=== PATIENT | female | born 1960 | race Caucasian/White ===

== ENCOUNTER → 2016-10-20 | Outpatient (CLI) | payer BC ==
[~2016-10-20] VITALS: Ht 172.7 cm; Wt 86.2 kg
[~2016-10-20] MED LIST: BENT10CA PO; CHLO50TA PO; LEVO175T2 PO; LIDOCAINE 2% INJ 100 MG/5 ML SDV (FOR ANES.) As Ordered ONE; LORA10CA PO; LOSA100T36 PO; META0.52 PO; MULT1TAB18 PO; NS 1,000 ML IV ONE; PROPOFOL 200 MG/20 ML VIAL As Ordered ONE; VENL75TA2 PO; [UNRECOGNIZED DRUG - CODE] PO
--- NOTE | 2016-10-20 13:04 | ROOR ---
Patient Name: Dian Cano Procedure Date: 10/20/2016 12:45 PM Date of : 1960 Age: 56 Room: [facility] Gender: Female Note Status: Finalized Procedure: Upper Endoscopy + Biopsies Indications: Heartburn, Endoscopy to assess diarrhea in patient suspected of having celiac disease Providers: Raffaele Elmore MD Referring MD: Skyla CORDOVA MD Requesting Provider: Medicines: Monitored Anesthesia Care Complications: No immediate complications. Procedure: Pre-Anesthesia Assessment: - The heart rate, respiratory rate, oxygen saturations, blood pressure, adequacy of pulmonary ventilation, and response to care were monitored throughout the procedure. The Endoscope was introduced through the mouth, and advanced to the second part of duodenum. The upper GI endoscopy was accomplished without difficulty. The patient tolerated the procedure well. Findings: The Z-line was irregular and was found 35 cm from the incisors. Multiple biopsies were obtained with cold forceps for evaluation to rule out Barcenas's Esophagus randomly at the gastroesophageal junction. A small hiatal hernia was present. No other significant abnormalities were identified in a careful examination of the stomach. The exam of the duodenum was otherwise normal. Biopsies for histology were taken with a cold forceps in the first portion of the duodenum for evaluation of celiac disease. The exam was otherwise without abnormality. Impression: - Z-line irregular, 35 cm from the incisors. - Small hiatal hernia. - The examination was otherwise normal. - Multiple biopsies were obtained at the gastroesophageal junction. - Biopsies were taken with a cold forceps for evaluation of celiac disease. - The examination was otherwise normal. Recommendation: - Patient has a contact number available for emergencies. The signs and symptoms of potential delayed complications were discussed with the patient. Return to normal activities tomorrow. Written discharge instructions were provided to the patient. - High fiber diet. - Discharge patient to home. - Continue present medications. - Await pathology results. - Telephone GI clinic for pathology results in 1 week. - Follow an antireflux regimen. - Check Portal Online for Path Results.([email or web address] - The findings and recommendations were discussed with the patient's family. Raffaele Elmore MD Raffaele Elmore MD 10/20/2016 1:03:58 PM This report has been signed electronically. Number of Addenda: 0 Note Initiated On: 10/20/2016 12:45 PM Estimated Blood Loss: Estimated blood loss: none.
--- NOTE | 2016-10-20 13:20 | ROOR ---
Patient Name: Dian Cano Procedure Date: 10/20/2016 12:46 PM Date of : 1960 Age: 56 Room: [facility] Gender: Female Note Status: Finalized Procedure: Total Colonoscopy to Cecum + Cold Snare Polypectomy Indications: Change in bowel habits Providers: Raffaele Elmore MD Referring MD: Skyla CORDOVA MD Requesting Provider: Medicines: Monitored Anesthesia Care Complications: No immediate complications. Procedure: Pre-Anesthesia Assessment: - The heart rate, respiratory rate, oxygen saturations, blood pressure, adequacy of pulmonary ventilation, and response to care were monitored throughout the procedure. The Colonoscope was introduced through the anus and advanced to the cecum, identified by appendiceal orifice and ileocecal valve. The colonoscopy was performed without difficulty. The patient tolerated the procedure well. The quality of the bowel preparation was excellent. Findings: The perianal and digital rectal examinations were normal. Non-bleeding internal hemorrhoids were found during retroflexion. The hemorrhoids were small and Grade I (internal hemorrhoids that do not prolapse). Two sessile polyps were found at 60 cm proximal to the anus. The polyps were small in size. These polyps were removed with a cold snare. Resection and retrieval were complete. The exam was otherwise without abnormality on direct and retroflexion views. Impression: - Non-bleeding internal hemorrhoids. - Two small polyps at 60 cm proximal to the anus, removed with a cold snare. Resected and retrieved. - The examination was otherwise normal on direct and retroflexion views. - The exam was otherwise normal to the cecum. Recommendation: - Patient has a contact number available for emergencies. The signs and symptoms of potential delayed complications were discussed with the patient. Return to normal activities tomorrow. Written discharge instructions were provided to the patient. - High fiber diet. - Discharge patient to home. - Continue present medications. - Await pathology results. - Telephone GI clinic for pathology results in 1 week. - Check Portal Online for Path Results.([email or web address] - Repeat colonoscopy in 5 years for surveillance based on pathology results. - Return to referring physician. - The findings and recommendations were discussed with the patient's family. Raffaele Elmore MD Raffaele Elmore MD 10/20/2016 1:19:59 PM This report has been signed electronically. Number of Addenda: 0 Note Initiated On: 10/20/2016 12:46 PM Estimated Blood Loss: Estimated blood loss: none.
[2016-10-20 13:55] VITALS: BP 153/84
== END | disposition home or self-care (01) ==
LOC: M OPP 11:18
PROVIDERS: ATTEND Internal Medicine Gastroenterology
DX: R19.4 Change in bowel habit (principal); D12.4 Benign neoplasm of descending colon; K64.0 First degree hemorrhoids; R19.7 Diarrhea, unspecified; Z86.010 Personal history of colon polyps; R12 Heartburn; K22.8 Other specified diseases of esophagus; K44.9 Diaphragmatic hernia without obstruction or gangrene; I10 Essential (primary) hypertension; E78.5 Hyperlipidemia, unspecified; E03.9 Hypothyroidism, unspecified; M51.9 Unspecified thoracic, thoracolumbar and lumbosacral intervertebral disc disorder; K58.9 Irritable bowel syndrome, unspecified; F17.210 Nicotine dependence, cigarettes, uncomplicated; Z79.899 Other long term (current) drug therapy; Z80.0 Family history of malignant neoplasm of digestive organs

== ENCOUNTER → 2017-04-07 | Outpatient (REF) ==
[~2017-04-07] MED LIST changes: -LIDOCAINE 2% INJ 100 MG/5 ML SDV (FOR ANES.) As Ordered ONE; -NS 1,000 ML IV ONE; -PROPOFOL 200 MG/20 ML VIAL As Ordered ONE
--- NOTE | 2017-04-08 09:36 | REPMRS ---
Patient History The patient states she had a clinical breast exam in 2016.No known family history of cancer. Digital Mammo Screening Bilat: April 07, 2017 - Exam #: [id number] Bilateral CC and MLO view(s) were taken. Technologist: Roz Rivera, Technologist Prior study comparison: April 25, 2016, bilateral digital mammo screening bilat performed at [facility]. April 24, 2015, bilateral digital mammo screening bilat performed at [facility]. FINDINGS: There are scattered fibroglandular densities. There has been no change in the appearance of the mammogram from the prior studies. There is a mild amount of residual fibroglandular tissue which is fairly symmetric. There is no interval development of dominant mass, architectural distortion, or clustered microcalcification suggestive of malignancy. ASSESSMENT: BI-RADS/ACR category 1 mammogram. Negative. Recommendation Routine screening mammogram in 1 year (for women over age 40). This mammogram was interpreted with the aid of an FDA-approved computer-aided dectection system. Electronically Signed By: Carlos Alberto Bond MD 04/08/17 0936
== END ==
LOC: M RAD 07:24 → EDSTATUS 07:30
PROVIDERS: ATTEND Nurse Practitioner Family
DX: Z12.31 Encounter for screening mammogram for malignant neoplasm of breast (principal)

== ENCOUNTER 2017-05-29 05:58 | Day surgery (SDC) | payer BC ==
[2017-05-29] MEDS ORDERED: LIDOCAINE 1% MDV 20ML VIAL SQ (06:15)
[2017-05-29] MEDS: LR 1,000 ML IV (06:37)
[2017-05-29] MEDS ORDERED: MIDAZOLAM INJ 2 MG/2 ML VIAL (J2250) As Ordered (07:50)
[2017-05-29] MEDS ORDERED: fentaNYL 100 MCG/2 ML INJECTION (J3010) As Ordered (07:50)
[2017-05-29] MEDS ORDERED: PHENYLephrine HCL 500 MCG/5 ML (100MCG/ML) SYRINGE (J2370) As Ordered (07:51)
[2017-05-29] MEDS ORDERED: METOCLOPRAMIDE INJ 10MG/2ML VIAL (J2765) As Ordered (07:51)
[2017-05-29] MEDS ORDERED: ePHEDrine INJ 50 MG/ML VIAL As Ordered (07:51)
[2017-05-29] MEDS ORDERED: CHLOROPROCAINE 2 % INJ PRES.FREE 20 ML VIAL (J2400) As Ordered (07:55)
[2017-05-29] MEDS ORDERED: LIDOCAINE 2% INJ 100 MG/5 ML SDV (FOR ANES.) As Ordered (07:56)
[2017-05-29] MEDS ORDERED: PROPOFOL 200 MG/20 ML VIAL As Ordered (07:56)
[2017-05-29] MEDS ORDERED: KETOROLAC 60 MG/2 ML VIAL (J1885) As Ordered (07:57)
[2017-05-29] MEDS ORDERED: ONDANSETRON 4MG/2ML VIAL (J2405) As Ordered (07:57)
[2017-05-29] MEDS ORDERED: LR 1,000 ML IV (08:45)
[2017-05-29] MEDS ORDERED: ONDANSETRON 4MG/2ML VIAL (J2405) IV (08:45)
[2017-05-29] MEDS ORDERED: HYDROmorphone HCL 1 MG/ML SYRINGE (J1170) IV (08:45)
[2017-05-29] MEDS ORDERED: fentaNYL 100 MCG/2 ML INJECTION (J3010) IV (08:45)
[2017-05-29] MEDS ORDERED: METOCLOPRAMIDE INJ 10MG/2ML VIAL (J2765) IV (08:45)
[2017-05-29] MEDS: PERCOCET 5MG/325MG TAB PO (09:13)
== END 2017-05-29 10:20 | disposition home or self-care (01) ==
LOC: M SDC 05:58
DX: K61.0 Anal abscess (principal); I10 Essential (primary) hypertension; E03.9 Hypothyroidism, unspecified; E78.00 Pure hypercholesterolemia, unspecified; K58.9 Irritable bowel syndrome, unspecified; K21.9 Gastro-esophageal reflux disease without esophagitis; R06.83 Snoring; F17.210 Nicotine dependence, cigarettes, uncomplicated; Z79.899 Other long term (current) drug therapy
CPT/HCPCS: 46050

== ENCOUNTER → 2017-07-09 | Outpatient (REF) | payer BC | LOC: M LAB REF 18:57 | DX: D48.5 Neoplasm of uncertain behavior of skin (principal) | CPT/HCPCS: 88305 ==

== ENCOUNTER → 2018-03-12 | Outpatient (REF) | LOC: M LAB 05:09 | DX: Z12.31 Encounter for screening mammogram for malignant neoplasm of breast (principal) ==

== ENCOUNTER → 2018-03-29 | Outpatient (REF) ==
[2018-03-29 18:32] LABS: HEMATOCRIT 42.4 % (36.0-47.0); HEMOGLOBIN 14.6 g/dl (12.0-15.5); MEAN CORPUSCULAR HEMOGLOBIN 32.2 pg (27.0-33.0); MEAN CORPUSCULAR HGB CONC 34.4 g/dl (32.0-36.5); MEAN CORPUSCULAR VOLUME 93.4 fl (80.0-96.0); PLATELET COUNT, AUTOMATED 326 10^3/uL (150-450); RED BLOOD COUNT 4.54 10^6/uL (4.00-5.40); WHITE BLOOD COUNT 12.1 10^3/uL (4.0-10.0)
[2018-03-29 18:49] LABS: ANION GAP 10 MEQ/L (8-16); BLOOD UREA NITROGEN 15 MG/DL (7-18); CALCIUM LEVEL 9.4 MG/DL (8.5-10.1); CARBON DIOXIDE LEVEL 28 MEQ/L (21-32); CHLORIDE LEVEL 103 MEQ/L (98-107); CHOLESTEROL LEVEL 203 MG/DL (<200); CHOLESTEROL RISK RATIO 4.413 (<5); CREATININE FOR GFR 0.78 MG/DL (0.55-1.30); GLOMERULAR FILTRATION RATE > 60.0 (>51); GLUCOSE, FASTING 115 MG/DL (70-100); HDL CHOLESTEROL 46 MG/DL (>40); LDL CHOLESTEROL 111 MG/DL (<100); NON-HDL-C 157 MG/DL; POTASSIUM SERUM 3.2 MEQ/L (3.5-5.1); SODIUM LEVEL 141 MEQ/L (136-145); TRIGLYCERIDES LEVEL 230 MG/DL (<150)
[2018-03-30 09:46] LABS: THYROID STIMULATING HORMONE 0.136 uIU/ML (0.358-3.740)
[2018-03-30 10:57] LABS: ESTIMATED AVERAGE GLUCOSE 128 MG/DL (60-110); HEMOGLOBIN A1c 6.1 %
== END ==
LOC: M LAB REF 18:50
DX: Z00.00 Encounter for general adult medical examination without abnormal findings (principal)

== ENCOUNTER → 2018-04-15 | Outpatient (CLI) | payer BC ==
[~2018-04-15] MED LIST changes: +DIPH2.5T14 PO; +LEVO200T4 PO; +LOSA-4 PO; -LOSA100T36 PO; +NEXI1CAP4 PO
--- NOTE | 2018-04-15 09:20 | REPMRS ---
Patient History The patient states she had a clinical breast exam in December 2017.No known family history of cancer. Digital Mammo Screening Bilat: April 15, 2018 - Exam #: [id number] Bilateral CC and MLO view(s) were taken. Technologist: Roz Rivera, Technologist Prior study comparison: April 07, 2017, bilateral digital mammo screening bilat performed at [facility]. April 25, 2016, bilateral digital mammo screening bilat performed at [facility]. April 24, 2015, bilateral digital mammo screening bilat performed at [facility]. FINDINGS: There are scattered fibroglandular densities. There has been no change in the appearance of the mammogram from the prior studies. There is a mild amount of scattered fibroglandular density which is fairly symmetric. There is no interval development of dominant mass, architectural distortion, or clustered microcalcification suggestive of malignancy. 3-D tomosynthesis shows no additional findings. Assessment: BI-RADS/ACR category 1 mammogram. Negative. Recommendation Routine screening mammogram of both breasts in 1 year (for women over age 40). This patient's Lifetime Breast Cancer RIsk is estimated at 7.3 %. This mammogram was interpreted with the aid of an FDA-approved computer-aided dectection system. Electronically Signed By: Benji Ang MD 04/15/18 [id number]
== END ==
LOC: M RAD 07:05
PROVIDERS: ATTEND Nurse Practitioner Family
DX: Z12.31 Encounter for screening mammogram for malignant neoplasm of breast (principal)

== ENCOUNTER → 2018-07-06 | Outpatient (CLI) | payer BC ==
[~2018-07-06] MED LIST changes: -LOSA-4 PO; +LOSA100T50 PO
--- NOTE | 2018-07-06 19:03 | REP ---
MRI RIGHT FOOT WITHOUT CONTRAST: 07/06/2018. Clinical history: Right foot pain. Evaluate for possible sesamoid fracture or other. Has known varus deformity right ankle. States she has "cyst "on bottom of toe" Technique: Sagittal T2 STIR with axial and coronal T1 and fat suppressed T2 sequences provided. Findings: There is intrasubstance fluid signal in the medial and deep portion of the distal Achilles tendon at least partly envelope by the tendon from old intrasubstance tear and/or peritendinitis. There is fluid posterior to the posterior subtalar joint and ankle. Axial images suggest a varus deformity in the talus. The distal tibia and fibula without focal lesion. No talar dome osteochondral defect. No calcaneal bone bruise or fracture. Talonavicular, calcaneocuboid joints normal. The anterior tibiotalar ligament may be partially attenuated. The anterior talofibular ligament, posterior talofibular and calcaneofibular ligaments show only minimal strain. Tarsal bones and their articulations grossly intact. No marrow signal abnormality of the metatarsals. On the coronal T1 images and best seen on image 9 of series 601 there is a cleft in the sesamoid but without edema on the T2 images and the sesamoid to suggest acute fracture. Superficial to this is well contained fluid within the sheath or bursa. There is also fluid in the first MTP joint and bursal recess dorsally. Remainder of the MTP joints show small amounts of fluid. The phalanges are without acute findings. The posterior tibial tendon shows no tear. There is some fluid tracking along its course as well as the FDL and FHL tendons. The PB/PL tendons show no evidence of a tear. The EDL and EHL tendons intact. Plantar fascia without any signal abnormality. Impression: 1. Appears to be an old fracture of the sesamoid along the medial aspect distal first metatarsal with no marrow signal abnormality in the sesamoid on T2 but with a cleft seen on the T1 sequence. Fluid is seen superficial to it in the plantar aspect of the foot at the level of the distal head of the first metatarsal suggesting bursal fluid or sheath fluid. I do not see marrow signal abnormality in the metatarsal itself phalanges or tarsal bones/hind foot. 2. There is evidence for peritendinitis and post traumatic change to the distal Achilles just above its insertion with fluid signal partially within that tendon. 3. Small amounts of fluid posterior to the ankle and anterior with fluid along tendon sheaths medially at the PT, FDL, and FHL tendons. No tear of those tendons. Ligaments laterally suggest some mild strain but no complete tear. Electronically Signed by Tian Sanz MD 07/06/2018 09:00 P
== END ==
LOC: M RAD 06:34
PROVIDERS: ATTEND Orthopaedic Surgery
DX: M21.611 Bunion of right foot (principal); S92.811S Other fracture of right foot, sequela

== ENCOUNTER → 2018-08-30 | Outpatient (CLI) | payer BC ==
[~2018-08-30] MED LIST changes: +ATOR1TAB19 PO; +CLAR10CA3 PO; +K-TA10TA2 PO; +OMEP40CA2 PO
[2018-08-30 18:47] LABS: BASO # 0.1 10^3/uL (0.0-0.2); BASO % 1.2 % (0.0-1.0); EOS # 0.8 10^3/uL (0.0-0.50); EOS % 8.9 % (0.0-3.0); HEMATOCRIT 42.8 % (36.0-47.0); HEMOGLOBIN 14.7 g/dl (12.0-15.5); LYMPH # 1.7 10^3/uL (1.5-4.5); LYMPH % 18.4 % (24.0-44.0); MEAN CORPUSCULAR HEMOGLOBIN 32.6 pg (27.0-33.0); MEAN CORPUSCULAR HGB CONC 34.3 g/dl (32.0-36.5); MEAN CORPUSCULAR VOLUME 94.9 fl (80.0-96.0); MONO # 0.6 10^3/uL (0.0-0.8); MONO % 6.3 % (0.0-5.0); NEUTROPHILS # 6.1 10^3/uL (1.8-7.7); NEUTROPHILS % 64.8 % (36.0-66.0); PLATELET COUNT, AUTOMATED 333 10^3/uL (150-450); RED BLOOD COUNT 4.51 10^6/uL (4.00-5.40); WHITE BLOOD COUNT 9.4 10^3/uL (4.0-10.0)
[2018-08-30 19:16] LABS: BLOOD UREA NITROGEN 17 MG/DL (7-18); CALCIUM LEVEL 9.7 MG/DL (8.5-10.1); CARBON DIOXIDE LEVEL 30 MEQ/L (21-32); CHLORIDE LEVEL 101 MEQ/L (98-107); CREATININE FOR GFR 0.64 MG/DL (0.55-1.30); GLOMERULAR FILTRATION RATE > 60.0 (>51); GLUCOSE, FASTING 89 MG/DL (70-100); POTASSIUM SERUM 4.2 MEQ/L (3.5-5.1); SODIUM LEVEL 139 MEQ/L (136-145)
--- NOTE | 2018-09-01 00:12 | ECGEPIP ---
Stationary ECG Study [facility] Test Date: 2018-08-30 Pat Name: GEORGIE ROMERO Department: Room: - Gender: F Anesthesia Technician: RF : 1960 Requested By: Bolivar Angel Order Number: [id number] Reading MD: Oliver Ortiz Measurements Intervals [place] Rate: 80 P: 5 ME: 153 QRS: 14 QRSD: 89 T: 11 QT: 381 QTc: 441 Interpretive Statements SINUS RHYTHM POSSIBLE PRIOR INFERIOR WALL INFARCT COMPARED TO THE LAST 3 TRACINGS, NO SIGNIFICANT CHANGES Electronically Signed On 09-01-2018 0:12:42 EDT by Oliver Ortiz
== END ==
LOC: M LAB 17:07
PROVIDERS: ATTEND Podiatrist
DX: M67.471 Ganglion, right ankle and foot (principal); M79.671 Pain in right foot

== ENCOUNTER 2018-09-03 05:56 | Day surgery (SDC) | payer BC ==
[~2018-09-03] VITALS: Ht 172.7 cm; Wt 88.0 kg
[2018-09-03] MEDS ORDERED: LR 1,000 ML IV ONE (07:00)
[2018-09-03] MEDS ORDERED: LIDOCAINE 2% MDV 20 ML VIAL As Ordered ONE (07:08)
[2018-09-03] MEDS ORDERED: BUPIVACAINE HCL 0.5% 30 ML VIAL As Ordered ONE (07:08)
[2018-09-03] MEDS ORDERED: dexameTHASONE 4 MG/ML 1ML VIAL (J1100) As Ordered ONE ×2 (07:08→07:34)
[2018-09-03] MEDS ORDERED: NEOSPORIN GU IRRIG 20 ML VIAL As Ordered ONE (07:09)
[2018-09-03] MEDS ORDERED: BACITRACIN PWD 50,000 UNITS VIAL As Ordered ONE (07:09)
[2018-09-03] MEDS ORDERED: MIDAZOLAM INJ 2 MG/2 ML VIAL (J2250) As Ordered ONE (07:33)
[2018-09-03] MEDS ORDERED: LIDOCAINE 2% INJ 100 MG/5 ML SDV (FOR ANES.) As Ordered ONE (07:33)
[2018-09-03] MEDS ORDERED: fentaNYL 100 MCG/2 ML INJECTION (J3010) As Ordered ONE (07:33)
[2018-09-03] MEDS ORDERED: PROPOFOL 200 MG/20 ML VIAL As Ordered ONE ×3 (07:33→08:10)
[2018-09-03] MEDS ORDERED: ONDANSETRON 4MG/2ML VIAL (J2405) As Ordered ONE (07:34)
[2018-09-03] MEDS ORDERED: KETOROLAC 60 MG/2 ML VIAL (J1885) As Ordered ONE (07:34)
[2018-09-03] MEDS ORDERED: PHENYLephrine HCL 500 MCG/5 ML (100MCG/ML) SYRINGE (J2370) As Ordered ONE (07:50)
[2018-09-03] MEDS ORDERED: PERCOCET 5MG/325MG TAB PO PRN (08:45)
[2018-09-03] MEDS ORDERED: LR 1,000 ML IV SCH (08:45)
[2018-09-03] MEDS ORDERED: ONDANSETRON 4MG/2ML VIAL (J2405) IV PRN (08:45)
[2018-09-03 09:20] VITALS: BP 139/90
--- NOTE | 2018-09-03 19:11 | RO ---
DATE OF PROCEDURE: 09/03/2018 PREPROCEDURE DIAGNOSIS: Soft tissue mass, probable synovial cyst submetatarsal region right foot. POSTPROCEDURE DIAGNOSIS: Soft tissue mass, probable synovial cyst submetatarsal bone right foot. OPERATIVE PROCEDURE: Incision of synovial cyst first metatarsal region right foot. SURGEON: Bolivar Angel DPM FIELD ARTILLERY TARGETING TECHNICIAN: None ANESTHESIA: Local Monitored anesthesia care (MAC) IRRIGATION: Diluted bacatracin, neomycin and polymyxin B solution. ESTIMATED BLOOD LOSS: 1 mL HEMOSTASIS: Ankle pneumatic tourniquet at 200 mmHg for 27 minutes. DESCRIPTION OF PROCEDURE: On 09/03/2018, this 58-year-old white male was taken from her hospital room to the operating room and placed on the operating room table in the supine position. Following induction of IV sedation, local and regional anesthesia, the right lower extremity was prepped in the usual aseptic manner. Attention was directed to the patient's right foot where there was noted to be a soft tissue mass. At this time, a 5 cm incision was placed along the medial surface of the foot at the superior margin of the soft tissue mass. Dissection was then carried down to the plantar surface of the capsular structures of the first metatarsophalangeal joint. The soft tissue mass was seen between the capsular and the subcutaneous fat layer. Careful dissection meticulously delivered the dorsal, plantar, proximal and lateral margins using Allis clamps to put a moderate amount of tension on the cyst. The cyst was carefully dissected along the lateral margin taking care to avoid the flexor tendon. The mass was removed in total. Palpation of the wound found no remaining suspicious lesions. The wound was flushed with copious amounts of dilute bacitracin, neomycin and polymyxin B solution. Any remaining bleeders were electrocoagulated as necessary. The wound was again flushed with copious amounts of dilute bacitracin, neomycin and polymyxin B solution. Attention was directed towards closure with the subcutaneous tissues coapted and maintained utilizing #4-0 Monocryl in a simple interrupted type fashion. Skin incisions were coapted and maintained utilizing #4-0 Prolene in a simple interrupted and horizontal mattress type fashion. Attention was directed towards bandaging with a sterile compressive bandage applied consisting of Adaptic, 4 x 4, 4 x 4 splint, Kerlix and Coban. Ankle pneumatic tourniquet was rapidly deflated and instantaneous capillary filling time was noted in digits 1 through 5 of the patient's right foot. The patient having apparently tolerated the surgical procedure well was taken from the OR to the recovery room for further monitoring by the anesthesia department. All surgical specimens removed during the operative procedure sent to pathology for gross and microscopic examination. Postoperative instructions given upon discharge.
== END 2018-09-03 09:40 | disposition home or self-care (01) ==
LOC: M SDC 05:56
PROVIDERS: ATTEND Podiatrist
DX: M67.471 Ganglion, right ankle and foot (principal); M77.41 Metatarsalgia, right foot; M79.671 Pain in right foot; I10 Essential (primary) hypertension; E78.5 Hyperlipidemia, unspecified; E03.9 Hypothyroidism, unspecified; K58.8 Other irritable bowel syndrome; K21.9 Gastro-esophageal reflux disease without esophagitis; F17.210 Nicotine dependence, cigarettes, uncomplicated; Z79.899 Other long term (current) drug therapy
CPT/HCPCS: 28104; 88307; J0690; J1100; J1885; J2250; J2370; J2405; J3010

== ENCOUNTER 2018-10-08 00:24 | Emergency (ER) | payer OTHER, BC ==
[~2018-10-08] VITALS: Ht 172.7 cm; Wt 86.4 kg
[2018-10-08 00:24] VITALS: BP 139/81
[2018-10-08] MEDS ORDERED: MULT1TAB8 PO (00:39)
[2018-10-08] MEDS ORDERED: BUPIVACAINE LIPOSOME/PF 1.3% 20ML VIAL (13.3MG/ML)(EXPAREL)(C9290 PER1MG) INFIL ONE (01:30)
--- NOTE | 2018-10-08 08:51 | REP ---
RIGHT RIB SERIES: Four views of the right ribs were performed. Old healed fractures are noted of the right 5th and 8th ribs. No definite acute fracture is seen. IMPRESSION: Old right 5th and 8th rib fractures. No definite acute fracture seen. Electronically Signed by Carlos Alberto Bond MD 10/08/2018 07:23 P
== END 2018-10-08 02:14 | disposition home or self-care (01) ==
LOC: M ED 00:24
DX: R07.81 Pleurodynia (principal); W01.198A Fall on same level from slipping, tripping and stumbling with subsequent striking against other object, initial encounter; Y92.89 Other specified places as the place of occurrence of the external cause; Y99.0 Civilian activity done for income or pay; Z87.81 Personal history of (healed) traumatic fracture; I10 Essential (primary) hypertension; K21.9 Gastro-esophageal reflux disease without esophagitis; E03.9 Hypothyroidism, unspecified; Z79.899 Other long term (current) drug therapy
CPT/HCPCS: 64420; 71100; 99283; C9290

== ENCOUNTER → 2019-03-02 | Outpatient (CLI) | payer BC, OTHER ==
[~2019-03-02] MED LIST changes: +MULT1TAB8 PO; -OMEP40CA2 PO; +OMEP40CA97 PO
--- NOTE | 2019-03-02 09:40 | REP ---
MRI cervical spine: 03/02/2019. Indication: Cervical radiculopathy. Comparison: 09/05/2014. Technique: Multiplanar short and long TR sequences of the cervical spine were obtained without IV Gadolinium. Findings: There is slight reversal of the cervical lordosis centered at C4/C5. There is minimal retrolisthesis of C5 and C6. Endplate degenerative signal changes are present throughout most pronounced at C5/C6 and C6/C7. No abnormal cervical cord signal is present. The craniocervical junction is unremarkable. C2/C3: Left-sided facet arthropathy is present with mild left-sided neural foraminal narrowing. C3/C4: Diffuse disc bulge and bilateral facet arthropathy are present. Moderate left greater than right bilateral neural foraminal narrowing and effacement of the ventral thecal sac. C4/C5: Diffuse disc bulge and bilateral facet arthropathy are present with mild bilateral neural foraminal narrowing and minimal effacement of the ventral thecal sac. C5/C6: There is an asymmetric disc osteophyte complex more apparent on the left with mild bilateral facet arthropathy. There is severe left and mild to moderate right neural foraminal narrowing. There is overall mild narrowing of the spinal canal. C6/C7: Once again, there is an asymmetric disc osteophyte complex more apparent on the left with moderate to severe left neural foraminal narrowing. There is mild effacement of the ventral thecal sac. C7/T1: Unremarkable. Impression: Multilevel degenerative sequelae as described most pronounced on the left at C5/C6 and C6/C7. Electronically Signed by Raymon Luke DO 03/02/2019 09:31 A
== END ==
LOC: M RAD 07:08
PROVIDERS: ATTEND Orthopaedic Surgery
DX: M47.22 Other spondylosis with radiculopathy, cervical region (principal)

== ENCOUNTER → 2019-04-24 | Outpatient (CLI) | payer BC ==
--- NOTE | 2019-04-24 15:32 | REP ---
Clinical: Cough . Comparison: 03/12/2018 . Technique: PA and lateral. Findings: The mediastinum and cardiac silhouette are normal. The lung menard are clear and without acute consolidation, effusion, or pneumothorax. The skeletal structures are intact and normal. Impression: 1. No acute cardiopulmonary process. Electronically Signed by Rashel Jean MD 04/24/2019 03:24 P
== END ==
LOC: M LRY 15:15
PROVIDERS: ATTEND Physician Assistant
DX: R05 Cough (principal)

== ENCOUNTER → 2019-04-24 | Outpatient (REF) | payer BC | LOC: M SFHCLERA 15:33 | PROVIDERS: ATTEND Physician Assistant | DX: J02.9 Acute pharyngitis, unspecified (principal); R05 Cough ==

== ENCOUNTER 2019-08-03 00:53 | Emergency (ER) | payer BC ==
[~2019-08-03] VITALS: Ht 172.7 cm; Wt 86.4 kg
[2019-08-03] MEDS ORDERED: KETOROLAC 30 MG/ML VIAL (J1885) IV ONE (01:30)
[2019-08-03] MEDS ORDERED: KETOROLAC 30 MG/ML VIAL (J1885) As Ordered ONE (01:30)
[2019-08-03 01:34] LABS: HEMATOCRIT 39.3 % (36.0-47.0); HEMOGLOBIN 13.7 g/dl (12.0-15.5); MEAN CORPUSCULAR HEMOGLOBIN 32.2 pg (27.0-33.0); MEAN CORPUSCULAR HGB CONC 34.9 g/dl (32.0-36.5); MEAN CORPUSCULAR VOLUME 92.3 fl (80.0-96.0); PLATELET COUNT, AUTOMATED 313 10^3/uL (150-450); RED BLOOD COUNT 4.26 10^6/uL (4.00-5.40); WHITE BLOOD COUNT 15.7 10^3/uL (4.0-10.0)
[2019-08-03 01:57] LABS: BLOOD UREA NITROGEN 18 MG/DL (7-18); CALCIUM LEVEL 9.8 MG/DL (8.5-10.1); CARBON DIOXIDE LEVEL 25 MEQ/L (21-32); CHLORIDE LEVEL 98 MEQ/L (98-107); CREATININE FOR GFR 0.77 MG/DL (0.55-1.30); GLOMERULAR FILTRATION RATE > 60.0 (>51); GLUCOSE, FASTING 107 MG/DL (70-100); POTASSIUM SERUM 3.7 MEQ/L (3.5-5.1); SODIUM LEVEL 131 MEQ/L (136-145)
[2019-08-03] MEDS ORDERED: NS 1,000 ML IV ONE (02:00)
[2019-08-03] MEDS ORDERED: ISOVUE-370 76% 100ML VIAL (Q9967) As Ordered ONE (02:18)
[2019-08-03 02:32] LABS: ALBUMIN 4.2 GM/DL (3.2-5.2); ALT/SGPT 37 U/L (12-78); BILIRUBIN,DIRECT 0.2 MG/DL (0.0-0.2); BILIRUBIN,TOTAL 0.8 MG/DL (0.2-1.0); LIPASE 49 U/L (73-393); PHOSPHORUS LEVEL 3.1 MG/DL (2.5-4.9); TOTAL PROTEIN 7.2 GM/DL (6.4-8.2)
--- NOTE | 2019-08-03 02:52 | REPVR ---
PROCEDURE INFORMATION: Exam: CT Abdomen And Pelvis With Contrast Exam date and time: 08/03/2019 1:56 AM Age: 59 years old Clinical indication: Right flank and lower back pain. TECHNIQUE: Imaging protocol: Computed tomography of the abdomen and pelvis with intravenous contrast. Radiation optimization: All CT scans at this facility use at least one of these dose optimization techniques: automated exposure control; mA and/or kV adjustment per patient size (includes targeted exams where dose is matched to clinical indication); or iterative reconstruction. Contrast material: ISO; Contrast volume: 100 ml; Contrast route: AC; COMPARISON: No relevant prior studies available. FINDINGS: Lungs: There is bibasilar atelectasis. Heart: No cardiomegaly or pericardial effusion. Diaphragm: Intact. Liver: The attenuation of the liver is lower compared to the spleen, which can be seen with fatty liver infiltration. No liver lesion is seen. The contour of the liver is smooth. No hepatomegaly is noted. Gallbladder and bile ducts: No calcified gallstones are noted. No gallbladder wall thickening, pericholecystic fluid, or pericholecystic inflammatory changes are identified. No dilation of the intrahepatic or extrahepatic bile ducts is noted. Pancreas: Normal. No dilation of the main pancreatic duct is noted. There is no inflammatory fat stranding around the pancreas to suggest acute pancreatitis. Spleen: Normal. No splenomegaly is noted. Adrenals: Normal. No adrenal mass is noted. Kidneys and ureters: The kidneys are normal in appearance. No renal lesion is noted. No calculi are seen in the kidneys or ureters. There is no hydronephrosis or hydroureter. There are no wedge-shaped areas of low attenuation in the kidneys to suggest pyelonephritis. There is no renal abscess or perinephric fluid collection. Stomach and bowel: The stomach is decompressed, limiting its optimal evaluation. The small bowel is unremarkable. There is no evidence for a bowel obstruction, diverticulosis, diverticulitis, perforated viscus, pneumatosis intestinalis, intussusception, or volvulus. The descending colon and sigmoid colon are decompressed, limiting their optimal evaluation. There is no pericolonic inflammatory fat stranding. There is a moderate amount of formed stool in the cecum, ascending colon, and transverse colon. Appendix: The appendix has been removed. Intraperitoneal space: No free air. No fluid collection. Retroperitoneal space: No fluid collection. No mass. Vasculature: The abdominal aorta is patent and normal in caliber and there are extensive atherosclerotic calcifications. There is moderate to severe stenosis of the origin of the single right main renal artery secondary to calcified atherosclerotic plaque. The single left main renal artery is patent. The celiac artery, superior mesenteric artery, and inferior mesenteric artery are patent. The iliac arteries and common femoral arteries are patent. The portal veins, splenic vein, superior mesenteric vein, inferior mesenteric vein, and renal veins are patent. Incidental note is made of small round calcifications in the pelvis, which are compatible with phleboliths. Lymph nodes: No enlarged lymph nodes. Bladder: The partially distended urinary bladder is unremarkable. No stones or masses are seen in the bladder. Reproductive: There has been a hysterectomy. The right ovary is unremarkable. The left ovary is not identified and may have been removed. Bones/joints: No fracture or dislocation is noted. There are degenerative changes in the lower thoracic spine and in the lumbar spine. There is extensive endplate sclerosis at the T7-T8, T8-T9, and T9-T10 levels. Synovial herniation pits are noted in the femoral head neck junctions bilaterally. Soft tissues: There is a horizontal incision scar in the anterior pelvic wall. No hernia. IMPRESSION: 1. No acute findings in the abdomen or pelvis. 2. No stones in the kidneys, ureters, or urinary bladder. No hydronephrosis or hydroureter. No CT evidence for pyelonephritis. 3. Moderate to severe stenosis of the origin of the single right main renal artery secondary to calcified atherosclerotic plaque. Electronically signed by: William Rebollar On 08/03/2019 02:52:15 AM
[2019-08-03] MEDS ORDERED: METHOCARBAMOL 1,000 MG/10 ML VIAL (J2800) IV ONE (03:00)
[2019-08-03] MEDS ORDERED: METH750T2 PO ×2 (03:29→03:30)
[2019-08-03] MEDS ORDERED: NAPR-885 PO ×2 (03:29→03:30)
[2019-08-03 03:38] VITALS: BP 113/71
== END 2019-08-03 03:43 | disposition home or self-care (01) ==
LOC: M ED 00:53
DX: K59.00 Constipation, unspecified (principal); M54.5 Low back pain; I70.1 Atherosclerosis of renal artery; E03.9 Hypothyroidism, unspecified; F17.200 Nicotine dependence, unspecified, uncomplicated; Z79.899 Other long term (current) drug therapy
CPT/HCPCS: 74177; 80069; 80076; 81001; 83690; 85027; 96361; 96374; 96375; 99284; J1885; J2800; Q9967

== ENCOUNTER → 2019-08-16 | Outpatient (CLI) | payer BC ==
[~2019-08-16] MED LIST changes: +METH750T2 PO; +NAPR-885 PO
== END ==
LOC: M LABSMTC 12:18
PROVIDERS: ATTEND Family Medicine
DX: Z11.59 Encounter for screening for other viral diseases (principal); Z20.828 Contact with and (suspected) exposure to other viral communicable diseases

== ENCOUNTER → 2019-11-10 | Outpatient (CLI) | payer BC | LOC: M LABSMTC 13:49 | PROVIDERS: ATTEND Family Medicine | DX: Z11.59 Encounter for screening for other viral diseases (principal) | CPT/HCPCS: C9803; U0002 ==

== ENCOUNTER → 2020-01-20 | Outpatient (CLI) | payer BC | LOC: M LABSMTC 09:57 | PROVIDERS: ATTEND Pediatrics | DX: Z20.828 Contact with and (suspected) exposure to other viral communicable diseases (principal) | CPT/HCPCS: C9803; U0002 ==

== ENCOUNTER → 2020-01-24 | Outpatient (REF) | payer BC | LOC: M LAB REF 16:27 | PROVIDERS: ATTEND Ophthalmology | DX: D23.122 Other benign neoplasm of skin of left lower eyelid, including canthus (principal) ==

== ENCOUNTER → 2020-03-28 | Outpatient (CLI) | payer SELFPAY | LOC: M LABSMTC 11:33 | PROVIDERS: ATTEND Family Medicine | DX: Z20.828 Contact with and (suspected) exposure to other viral communicable diseases (principal) ==

== ENCOUNTER → 2020-05-22 | Outpatient (CLI) | payer BC ==
[~2020-05-22] MED LIST changes: +METH-1165 PO; -METH750T2 PO
--- NOTE | 2020-05-22 08:21 | REP ---
INDICATION: LUNG SCREENING COMPARISON: 03/30/2015 TECHNIQUE: Axial noncontrast images from the thoracic inlet to the upper abdomen using low-dose lung screening technique (LDCT). FINDINGS: The bilateral lung menard are relatively well aerated and demonstrate subtle scattered nonspecific ground-glass opacities which may reflect areas of chronic air trapping and bronchitis. Small focal area of chronic opacity in the lateral right sulcus measures approximately 15 mm and is similar to prior examination likely representing scarring. No acute consolidation, significant nodule, or mass. No pleural effusion. No pneumothorax. Tracheobronchial tree is patent. Atherosclerotic changes to the aorta and coronary arteries noted. IMPRESSION: 1. Subtle scattered ground-glass opacities may reflect chronic bronchitis and air trapping. 2. Small chronic area of opacity along the lateral right sulcus essentially unchanged. 3. Lung-RADS category 2. Management recommendations include annual low-dose CT surveillance. <Electronically signed by Rashel Jean > 05/22/20 0801
== END ==
LOC: M RAD 07:06
PROVIDERS: ATTEND Nurse Practitioner Adult Health
DX: Z12.2 Encounter for screening for malignant neoplasm of respiratory organs (principal); F17.218 Nicotine dependence, cigarettes, with other nicotine-induced disorders; R91.8 Other nonspecific abnormal finding of lung field

== ENCOUNTER → 2020-05-29 | Outpatient (CLI) | payer BC ==
[~2020-05-29] MED LIST changes: -METH-1165 PO; +METH750T2 PO
--- NOTE | 2020-05-29 08:34 | PFTRPT ---
Height: 68.00 Inches Weight: 93.00 Lbs BSA: 1.48 Diagnosis: R05 DATE: 05/29/2020 ORDERING PHYSICIAN: Verena Chin NP Pre and post bronchodilator studies have excellent technical quality. Forced vital capacity is normal. FEV1 is in proportion. Obstructive index is therefore normal. Expiratory limit of the flow-volume loop is normal. No significant bronchodilator response is identified. Total lung capacity is normal. Residual volume is generally in proportion. Diffusing capacity although minimally reduced does just barely correct for alveolar volume. Hemoglobin is acceptable at 13.8. Airway resistance and conductance are normal. IMPRESSION: Borderline diffusing capacity requires clinical correlation. MTDD
== END ==
LOC: M CARPUL 07:30
PROVIDERS: ATTEND Nurse Practitioner Adult Health
DX: R05 Cough (principal)

== ENCOUNTER → 2020-05-30 | Outpatient (CLI) | payer BC ==
[~2020-05-30] MED LIST changes: +METH-1165 PO; -METH750T2 PO; +METHACHOLINE KIT (J7674) INH ONE
--- NOTE | 2020-05-30 10:54 | PFTRPT ---
Height: 68.00 Inches Weight: 193.00 Lbs BSA: 2.01 Diagnosis: R05 DATE: 05/30/2020 ORDERED BY: Verena Chin NP QUALITY: Study of excellent technical quality. PROCEDURE: Under protocol, methacholine was administered. Even after a maximal dose of 25 mg or 188.875 CDUs, no provocation dose ever achieved. IMPRESSION: Negative methacholine challenge study. MTDD
== END ==
LOC: M CARPUL 09:34
PROVIDERS: ATTEND Nurse Practitioner Adult Health
DX: R05 Cough (principal)
CPT/HCPCS: 94070; J7674

== ENCOUNTER → 2020-06-13 | Outpatient (REF) ==
[~2020-06-13] MED LIST changes: -METHACHOLINE KIT (J7674) INH ONE
--- NOTE | 2020-06-13 09:00 | REPMRS ---
Patient History The patient states she had a clinical breast exam in 06/16 No known family history of cancer. Benign excisional biopsy of the right breast, 2004. Digital Woman Screen Mammo: June 13, 2020 - Exam #: [id number] Bilateral CC and MLO view(s) were taken. Technologist: Tracie Bond, Technologist Prior study comparison: April 15, 2018, bilateral digital mammo screening bilat, performed at [facility]. April 07, 2017, bilateral digital mammo screening bilat, performed at [facility]. April 25, 2016, bilateral digital mammo screening bilat, performed at [facility]. FINDINGS: The breast tissue is almost entirely fat. The Volpara volumetric breast density category is: A. There has been no change in the appearance of the mammogram from the prior studies. There is no interval development of dominant mass, architectural distortion, or grouped microcalcification typical of malignancy. 3-D tomosynthesis shows no additional findings. Assessment: BI-RADS/ACR category 1 mammogram. Negative Mammogram. Recommendation Routine screening mammogram of both breasts in 1 year (for women over age 40). This patient's [facility] Lifetime Breast Cancer RIsk is estimated at 7.0 %. This mammogram was interpreted with the aid of an FDA-approved computer-aided dectection system. Electronically Signed By: Benji Ang MD 06/13/20 0931
== END ==
LOC: M WHC 07:42
PROVIDERS: ATTEND Registered Nurse
DX: Z12.31 Encounter for screening mammogram for malignant neoplasm of breast (principal)

== ENCOUNTER → 2020-11-21 | Outpatient (CLI) | payer BC ==
[~2020-11-21] MED LIST changes: +OMEP40CA4 PO; -OMEP40CA97 PO
--- NOTE | 2020-11-21 18:27 | REPVR ---
PROCEDURE INFORMATION: Exam: MR Lumbar Spine Without Contrast Exam date and time: 11/21/2020 4:04 PM Age: 60 years old Clinical indication: Other: RT foot neuropathy; Additional info: RT foot burning TECHNIQUE: Imaging protocol: Multiplanar magnetic resonance images of the lumbar spine without intravenous contrast. COMPARISON: CT ABD/PEL W/IV CONTRAST ONLY 08/03/2019 2:23 AM FINDINGS: Vertebrae: Small L1-L2 vertebral body hemangiomas. No acute fracture. No destructive bony process identified. Modic 1 changes (subchondral vertebral end plate cancellous bone edema) at superior left L5. Spinal cord: The conus tip is at the T12-L1 level. Normal signal. No cord compression. L1-L2: No significant disc disease. No significant spinal canal stenosis. No neural foraminal stenosis. Mild bilateral primary facet osteoarthritis. L2-L3: Mild disc desiccation (Pfirrmann 3). Mild posterior annular bulging. No neural foraminal stenosis. Mild right primary facet osteoarthritis. L3-L4: Mild disc desiccation (Pfirrmann 3). Mild posterior annular bulging. No neural foraminal stenosis. Mild bilateral primary facet osteoarthritis. L4-L5: Mild disc desiccation (Pfirrmann 3). Slight anterolisthesis.The AP thecal sac dimension is 12.1 mm. Left foraminal/far lateral annular fissure without focal disc protrusion (series 301, frames 2-4). No neural foraminal stenosis. Mild right, moderate left primary facet osteoarthritis, mild contiguous cancellous bone edema. L5-S1: Mild disc desiccation (Pfirrmann 3). No spinal canal or neural foraminal stenosis. Right subarticular annular fissure without focal disc protrusion (series 301, frames 9-11). No neural foraminal stenosis. Moderate left primary facet osteoarthritis. 6.7 mm left posterior intraforaminal synovial cyst, possibly impinging upon the intraforaminal L5 nerve root (series 601, frame 3). Soft tissues: Unremarkable. IMPRESSION: Left L5-S1 intraforaminal synovial cyst. Clinical correlation to assess for any left L5 root specific symptomatology is recommended as above. L4-L5 and L5-S1 annular fissures. Please see additional findings as above. Electronically signed by: Morales Aguilar On 11/21/2020 18:26:38 PM
== END ==
LOC: M RAD 15:29
PROVIDERS: ATTEND Psychiatry & Neurology Neurology
DX: M71.38 Other bursal cyst, other site (principal); M51.37 Other intervertebral disc degeneration, lumbosacral region; R20.2 Paresthesia of skin; M54.12 Radiculopathy, cervical region; R29.2 Abnormal reflex; M54.17 Radiculopathy, lumbosacral region

== ENCOUNTER → 2020-11-22 | Outpatient (CLI) | payer BC ==
[~2020-11-22] MED LIST changes: +PROHANCE 279.3MG/ML 15ML VIAL As Ordered ONE; +PROHANCE 279.3MG/ML 5ML VIAL As Ordered ONE
--- NOTE | 2020-11-22 21:00 | REPVR ---
PROCEDURE INFORMATION: Exam: MR Cervical Spine Without and With Contrast Exam date and time: 11/22/2020 7:05 PM Age: 60 years old Clinical indication: Neck pain; Additional info: Hyperreflexia w/ RT side numbness burning TECHNIQUE: Imaging protocol: Multiplanar magnetic resonance images of the cervical spine without and with contrast. Contrast material: PROHANCE; Contrast volume: 17 ml; Contrast route: INTRAVENOUS (IV); COMPARISON: MRI-Spine,Cervical without con 03/02/2019 8:04 AM FINDINGS: Vertebrae: Reversal of the normal cervical lordosis. Grade 1 anterolisthesis at C3-C4. Grade 1 retrolisthesis at C5-C6. Advanced facet and uncovertebral joint DJD. Facet joint effusions at C3-C4 and C4-C5 with adjacent marrow and surrounding soft tissue edema and enhancement, worse on the right. No destructive changes are seen. Multilevel reactive endplate degenerative changes. Spinal cord: Normal signal. No cord compression. No syrinx or mass. C2-C3: No disc herniation or spinal stenosis. No significant foraminal stenosis. C3-C4: Disc degeneration with disc space narrowing and broad based posterior disc bulge. Mild spinal stenosis. Moderate bilateral foraminal stenosis, worse on the left. C4-C5: Mild right foraminal stenosis. No disc herniation or spinal stenosis. C5-C6: Disc degeneration with disc space narrowing and broad based posterior disc bulge. Mild central spinal stenosis. Severe left foraminal stenosis. C6-C7: Disc degeneration with disc space narrowing and broad based posterior disc bulge. No spinal stenosis. Mild left foraminal stenosis. C7-T1: No disc herniation or spinal stenosis. No significant foraminal stenosis. Soft tissues: Unremarkable. Vertebral arteries: Expected flow voids in the vertebral arteries. IMPRESSION: 1. Advanced degenerative spondylosis as above. 2. Mild central spinal stenosis at C3-C4 and C5-C6. No cord compression. 3. Facet joint effusions with mild enhancement at C3-C4 and C4-C5 suggesting synovitis, worse on the right. No destructive changes or abscess. Electronically signed by: Pradip Nunn On 11/22/2020 20:59:50 PM
--- NOTE | 2020-11-22 21:06 | REPVR ---
PROCEDURE INFORMATION: Exam: MR Head Without and With Contrast Exam date and time: 11/22/2020 7:05 PM Age: 60 years old Clinical indication: Pain; Other: Hyperreflexia w/ RT side numbness burning TECHNIQUE: Imaging protocol: MR of the head without and with intravenous contrast. Contrast material: PROHANCE; Contrast volume: 17 ml; Contrast route: INTRAVENOUS (IV); COMPARISON: MRI-Spine,Cervical without con 03/02/2019 8:04 AM FINDINGS: Brain: Unremarkable. No acute infarct. No hemorrhage. No significant white matter disease. No midline shift. No mass or abnormal contrast enhancement Cerebral ventricles: Normal. No ventriculomegaly. Bones/joints: Unremarkable. Paranasal sinuses: Normal as visualized. No acute sinusitis. Mastoid air cells: Normal as visualized. No mastoid effusion. Soft tissues: Unremarkable. IMPRESSION: Unremarkable exam. No acute findings. Electronically signed by: Pradip Nunn On 11/22/2020 21:06:07 PM
== END ==
LOC: M RAD 16:54
PROVIDERS: ATTEND Psychiatry & Neurology Neurology
DX: M47.812 Spondylosis without myelopathy or radiculopathy, cervical region (principal); M48.02 Spinal stenosis, cervical region; M25.48 Effusion, other site; R20.2 Paresthesia of skin; R29.2 Abnormal reflex; M54.12 Radiculopathy, cervical region
CPT/HCPCS: 70553; 72156; A9576

== ENCOUNTER → 2021-01-22 | Outpatient (REF) ==
[~2021-01-22] MED LIST changes: -PROHANCE 279.3MG/ML 15ML VIAL As Ordered ONE; -PROHANCE 279.3MG/ML 5ML VIAL As Ordered ONE
[2021-01-22 10:08] LABS: RSV AMPLIFICATION NEGATIVE (NEGATIVE)
== END ==
LOC: M EMP 08:39
PROVIDERS: ATTEND Family Medicine
DX: Z11.52 Encounter for screening for COVID-19 (principal)

== ENCOUNTER → 2021-04-03 | Outpatient (REF) | LOC: M EMP 20:06 | PROVIDERS: ATTEND Nurse Practitioner Adult Health | DX: Z20.822 Contact with and (suspected) exposure to COVID-19 (principal) ==

== ENCOUNTER → 2021-06-05 | Outpatient (CLI) | payer BC ==
[~2021-06-05] MED LIST changes: +LOSA100T45 PO; -LOSA100T50 PO
== END ==
LOC: M RAD 06:37
PROVIDERS: ATTEND Nurse Practitioner Adult Health
DX: F17.218 Nicotine dependence, cigarettes, with other nicotine-induced disorders (principal)

== ENCOUNTER → 2021-06-12 | Outpatient (REF) | LOC: M LABSMTC 09:39 | PROVIDERS: ATTEND Family Medicine | DX: Z20.822 Contact with and (suspected) exposure to COVID-19 (principal) ==

== ENCOUNTER → 2021-07-03 | Outpatient (CLI) | payer BC | LOC: M WHC 07:16 | PROVIDERS: ATTEND Registered Nurse | DX: Z12.31 Encounter for screening mammogram for malignant neoplasm of breast (principal) ==

== ENCOUNTER → 2021-07-08 | Outpatient (CLI) | payer BC | LOC: M PLARAD 11:09 | PROVIDERS: ATTEND Nurse Practitioner Adult Health | DX: R91.8 Other nonspecific abnormal finding of lung field (principal) | CPT/HCPCS: 78815; A9552 ==

== ENCOUNTER → 2021-08-14 | Outpatient (CLI) | payer BC | LOC: M LAB 06:08 | PROVIDERS: ATTEND Registered Nurse | DX: E03.9 Hypothyroidism, unspecified (principal) ==

== ENCOUNTER → 2021-10-16 | Outpatient (REF) | payer BC | LOC: M SFHCDERM 18:20 | PROVIDERS: ATTEND Physician Assistant | DX: R21 Rash and other nonspecific skin eruption (principal); L30.9 Dermatitis, unspecified ==

== ENCOUNTER → 2022-04-11 | Outpatient (CLI) | payer BC ==
[2022-04-11 08:54] LABS: BASO # 0.1 10^3/uL (0.0-0.2); BASO % 0.7 % (0.0-1.0); EOS # 0.4 10^3/uL (0.0-0.5); HEMATOCRIT 41.9 % (36.0-47.0); HEMOGLOBIN 14.3 g/dl (12.0-15.5); LYMPH # 1.8 10^3/uL (1.5-5.0); LYMPH % 16.5 % (24.0-44.0); MEAN CORPUSCULAR HEMOGLOBIN 31.9 pg (27.0-33.0); MEAN CORPUSCULAR HGB CONC 34.1 g/dl (32.0-36.5); MEAN CORPUSCULAR VOLUME 93.5 fl (80.0-96.0); MONO # 0.7 10^3/uL (0.0-0.8); MONO % 6.2 % (2.0-8.0); NEUTROPHILS # 7.8 10^3/uL (1.5-8.5); PLATELET COUNT, AUTOMATED 293 10^3/uL (150-450); RED BLOOD COUNT 4.48 10^6/uL (4.00-5.40); WHITE BLOOD COUNT 10.8 10^3/uL (4.0-10.0)
[2022-04-11 09:07] LABS: URIC ACID 6.4 MG/DL (3.1-7.8)
[2022-04-11 09:10] LABS: ALBUMIN 3.7 G/DL (3.2-5.2); ALKALINE PHOSPHATASE 81 U/L (46-116); ALT/SGPT 69 U/L (7.0-40); AST/SGOT 55 U/L (<34); BILIRUBIN,TOTAL 0.3 MG/DL (0.3-1.2); BLOOD UREA NITROGEN 28 MG/DL (9-23); CALCIUM LEVEL 9.5 MG/DL (8.3-10.6); CARBON DIOXIDE LEVEL 22 MMOL/L (20-31); CHLORIDE LEVEL 107 MMOL/L (98-107); GLOMERULAR FILTRATION RATE > 60.0 (>45); GLUCOSE, FASTING 142 MG/DL (74-106); POTASSIUM SERUM 3.6 MMOL/L (3.5-5.1); SODIUM LEVEL 139 MMOL/L (136-145); TOTAL PROTEIN 6.8 G/DL (5.7-8.2)
[2022-04-11 09:11] LABS: RHEUMATOID FACTOR QUANT 5.4 IU/ML (<14)
[2022-04-11 09:15] LABS: ERYTHROCYTE SEDIMENTATION RATE 11 mm/hr (0-30)
[2022-04-11 09:23] LABS: HEPATITIS B SURFACE ANTIGEN NEGATIVE (NEGATIVE)
[2022-04-11 09:37] LABS: HIV 1&2 SCREEN CENTAUR NEGATIVE (NEGATIVE)
[2022-04-11 09:45] LABS: HEPATITIS B CORE ANTIBODY IGM NEGATIVE (NEGATIVE)
[2022-04-11 11:38] LABS: HEPATITIS B SURFACE ANTIBODY POSITIVE (POSITIVE)
== END ==
LOC: M LAB 07:52
PROVIDERS: ATTEND Nurse Practitioner Family
DX: L20.89 Other atopic dermatitis (principal)

== ENCOUNTER → 2022-05-28 | Outpatient (CLI) | payer BC ==
[~2022-05-28] MED LIST changes: +ATOR1TAB19; +ESOM40CA35; +GABA-283 PO
== END ==
LOC: M LABSMTC 09:26
PROVIDERS: ATTEND Anesthesiology
DX: Z01.818 Encounter for other preprocedural examination (principal)

== ENCOUNTER → 2022-07-17 | Outpatient (REF) | payer BC | LOC: M WHC 07:11 → EDSTATUS 07:30 | PROVIDERS: ATTEND Registered Nurse | DX: Z02.1 Encounter for pre-employment examination (principal); Z12.4 Encounter for screening for malignant neoplasm of cervix ==

== ENCOUNTER → 2022-08-18 | Outpatient (CLI) | payer BC | LOC: M RAD 07:45 | PROVIDERS: ATTEND Nurse Practitioner Adult Health | DX: Z12.2 Encounter for screening for malignant neoplasm of respiratory organs (principal); F17.210 Nicotine dependence, cigarettes, uncomplicated; M47.9 Spondylosis, unspecified; R91.8 Other nonspecific abnormal finding of lung field ==

== ENCOUNTER → 2022-08-19 | Outpatient (CLI) | payer BC ==
[2022-08-19 09:35] LABS: BLOOD UREA NITROGEN 13 MG/DL (9-23); CREATININE FOR GFR 0.57 MG/DL (0.55-1.30); GLOMERULAR FILTRATION RATE > 60.0 (>45)
== END ==
LOC: M LAB 08:43
PROVIDERS: ATTEND Physician Assistant
DX: M25.552 Pain in left hip (principal); M47.896 Other spondylosis, lumbar region

== ENCOUNTER → 2022-09-23 | Outpatient (CLI) | payer BC ==
[~2022-09-23] MED LIST changes: -LOSA100T45 PO; +LOSA100T46 PO
[2022-09-23 12:42] LABS: HEMOGLOBIN 13.3 g/dl (12.0-15.5); MEAN CORPUSCULAR HEMOGLOBIN 32.7 pg (27.0-33.0); MEAN CORPUSCULAR VOLUME 93.4 fl (80.0-96.0); PLATELET COUNT, AUTOMATED 271 10^3/uL (150-450); RED BLOOD COUNT 4.07 10^6/uL (4.00-5.40); WHITE BLOOD COUNT 9.8 10^3/uL (4.0-10.0)
[2022-09-23 13:35] LABS: BLOOD UREA NITROGEN 17 MG/DL (9-23); CALCIUM LEVEL 9.7 MG/DL (8.3-10.6); CARBON DIOXIDE LEVEL 25 MMOL/L (20-31); CHLORIDE LEVEL 98 MMOL/L (98-107); CREATININE FOR GFR 0.57 MG/DL (0.55-1.30); GLOMERULAR FILTRATION RATE > 60.0 (>45); GLUCOSE, FASTING 84 MG/DL (74-106); SODIUM LEVEL 135 MMOL/L (136-145)
== END ==
LOC: M LAB 11:49
PROVIDERS: ATTEND Orthopaedic Surgery
DX: Z01.818 Encounter for other preprocedural examination (principal); M43.16 Spondylolisthesis, lumbar region

== ENCOUNTER → 2022-09-23 | Outpatient (CLI) | payer BC | LOC: M EKG 11:52 | PROVIDERS: ATTEND Student in an Organized Health Care Education/Training Program | DX: Z01.818 Encounter for other preprocedural examination (principal); R94.31 Abnormal electrocardiogram [ECG] [EKG] ==

== ENCOUNTER → 2023-04-28 | Outpatient (REF) | payer BC ==
[~2023-04-28] MED LIST changes: -GABA-283 PO; +GABA-284 PO; -K-TA10TA2 PO; +POTA-165 PO
[2023-04-28 14:08] LABS: FOLATE > 24.0 NG/ML (>5.4); VITAMIN B12 LEVEL 627 PG/ML (211-911)
== END ==
LOC: M LAB REF 13:20
PROVIDERS: ATTEND Physician Assistant Medical
DX: G62.9 Polyneuropathy, unspecified (principal)

== ENCOUNTER → 2023-06-12 | Outpatient (REF) | LOC: M EMP 13:32 | PROVIDERS: ATTEND Family Medicine | DX: Z01.89 Encounter for other specified special examinations (principal) ==

== ENCOUNTER → 2023-07-21 | Outpatient (REF) | payer BC ==
[~2023-07-21] MED LIST changes: -ATOR1TAB19; +DOXE25CA PO; -ESOM40CA35; +ESOM40CA35 PO; +HYDR1CAP25 PO; +LEVOTAB10 PO; +POTA-150 PO; +SYNT150T PO; +UPAD30TA PO
== END ==
LOC: M WHC 07:27 → EDSTATUS 07:30
PROVIDERS: ATTEND Physician Assistant Medical
DX: Z12.31 Encounter for screening mammogram for malignant neoplasm of breast (principal)

== ENCOUNTER → 2023-07-22 | Outpatient (REF) ==
[2023-07-22 08:19] LABS: HEMATOCRIT 33.8 % (36.0-47.0); HEMOGLOBIN 11.9 g/dl (12.0-15.5); MEAN CORPUSCULAR HGB CONC 35.2 g/dl (32.0-36.5); MEAN CORPUSCULAR VOLUME 99.4 fl (80.0-96.0); PLATELET COUNT, AUTOMATED 295 10^3/uL (150-450); WHITE BLOOD COUNT 7.1 10^3/uL (4.0-10.0)
[2023-07-22 08:20] LABS: APPEARANCE, URINE CLEAR (CLEAR); BACTERIA, URINE AUTO NEGATIVE (NEGATIVE); BILIRUBIN, URINE AUTO NEGATIVE (NEGATIVE); BLOOD, URINE BLOOD NEGATIVE (NEGATIVE); COLOR, URINE YELLOW (YELLOW); GLUCOSE, URINE (UA) AUTO NEGATIVE (NEGATIVE); KETONE, URINE AUTO NEGATIVE (NEGATIVE); LEUKOCYTE ESTERASE, URINE AUTO NEGATIVE (NEGATIVE); NITRITE, URINE AUTO NEGATIVE (NEGATIVE); PROTEIN, URINE AUTO NEGATIVE (NEGATIVE); RBC, URINE AUTO 0 /HPF (0-3); SPECIFIC GRAVITY URINE AUTO 1.024 (1.002-1.035); SQUAMOUS EPITHELIAL CELL UR AU 0 /HPF (0-6); WBC, URINE AUTO 1 /HPF (0-3)
[2023-07-22 09:13] LABS: BLOOD UREA NITROGEN 20 MG/DL (9-23); CALCIUM LEVEL 9.5 MG/DL (8.3-10.6); CARBON DIOXIDE LEVEL 27 MMOL/L (20-31); CHLORIDE LEVEL 105 MMOL/L (98-107); CHOLESTEROL LEVEL 213 MG/DL (<200); CHOLESTEROL RISK RATIO 3.06 (<5); CREATININE FOR GFR 0.66 MG/DL (0.55-1.30); GLOMERULAR FILTRATION RATE > 60.0 (>45); GLUCOSE, FASTING 113 MG/DL (74-106); HDL CHOLESTEROL 69.5 MG/DL (>40); NON-HDL-C 143.5 MG/DL; POTASSIUM SERUM 3.3 MMOL/L (3.5-5.1); SODIUM LEVEL 139 MMOL/L (136-145); TRIGLYCERIDES LEVEL 420 MG/DL (<150)
== END ==
LOC: M LAB 07:27
PROVIDERS: ATTEND Physician Assistant Medical
DX: Z01.89 Encounter for other specified special examinations (principal)

== ENCOUNTER → 2023-07-22 | Outpatient (CLI) | payer BC ==
[2023-07-22 09:12] LABS: BLOOD UREA NITROGEN 20 MG/DL (9-23); CREATININE FOR GFR 0.64 MG/DL (0.55-1.30); GLOMERULAR FILTRATION RATE > 60.0 (>45)
== END ==
LOC: M LAB 07:24
PROVIDERS: ATTEND Orthopaedic Surgery
DX: M54.50 Low back pain, unspecified (principal)

== ENCOUNTER → 2023-09-23 | Outpatient (CLI) | payer BC ==
[~2023-09-23] MED LIST changes: +DIPH1TAB80 PO; -DIPH2.5T14 PO
== END ==
LOC: M RAD 06:42
PROVIDERS: ATTEND Nurse Practitioner Adult Health
DX: Z12.2 Encounter for screening for malignant neoplasm of respiratory organs (principal); F17.218 Nicotine dependence, cigarettes, with other nicotine-induced disorders; R91.8 Other nonspecific abnormal finding of lung field; I25.10 Atherosclerotic heart disease of native coronary artery without angina pectoris

== ENCOUNTER → 2023-09-23 | Outpatient (CLI) | payer BC ==
[2023-09-23 07:55] LABS: HEMATOCRIT 34.6 % (36.0-47.0); HEMOGLOBIN 12.2 g/dl (12.0-15.5); MEAN CORPUSCULAR HGB CONC 35.3 g/dl (32.0-36.5); MEAN CORPUSCULAR VOLUME 96.4 fl (80.0-96.0); PLATELET COUNT, AUTOMATED 314 10^3/uL (150-450); RED BLOOD COUNT 3.59 10^6/uL (4.00-5.40); WHITE BLOOD COUNT 5.3 10^3/uL (4.0-10.0)
[2023-09-23 08:26] LABS: ALBUMIN 4.6 G/DL (3.2-5.2); ALKALINE PHOSPHATASE 64 U/L (46-116); ALT/SGPT 60 U/L (7.0-40); AST/SGOT 56 U/L (<34); BLOOD UREA NITROGEN 13 MG/DL (9-23); CALCIUM LEVEL 10.3 MG/DL (8.3-10.6); CARBON DIOXIDE LEVEL 28 MMOL/L (20-31); CHLORIDE LEVEL 98 MMOL/L (98-107); CHOLESTEROL LEVEL 218 MG/DL (<200); CREATININE FOR GFR 0.53 MG/DL (0.55-1.30); GLOMERULAR FILTRATION RATE > 60.0 (>45); GLUCOSE, FASTING 75 MG/DL (74-106); HDL CHOLESTEROL 60.4 MG/DL (>40); LDL CHOLESTEROL 116.2 MG/DL (<100); NON-HDL-C 157.6 MG/DL; POTASSIUM SERUM 3.4 MMOL/L (3.5-5.1); SODIUM LEVEL 133 MMOL/L (136-145); TOTAL PROTEIN 6.7 G/DL (5.7-8.2); TRIGLYCERIDES LEVEL 207 MG/DL (<150)
== END ==
LOC: M LAB 06:44
PROVIDERS: ATTEND Physician Assistant
DX: L40.0 Psoriasis vulgaris (principal)

== ENCOUNTER 2023-11-23 12:04 | Day surgery (SDC) | payer BC ==
[~2023-11-23] VITALS: Ht 172.7 cm; Wt 84.9 kg
[~2023-11-23 12:04] MED LIST changes: +ESOM1CAP20 PO; +GABA800T4 PO; +LOSA25TA13 PO; +MELO7.5T35 PO; +META28.32 PO; +SYNT125T PO
[2023-11-23] MEDS: NS 1,000 ML IV ONE (12:23)
[2023-11-23] MEDS ORDERED: propofoL 200 MG/20 ML VIAL As Ordered ONE (12:56)
[2023-11-23 13:09] VITALS: TEMP 97.9
[2023-11-23 13:30] VITALS: BP 125/73; O2SAT 98
== END 2023-11-23 13:36 | disposition home or self-care (01) ==
LOC: M OPP 12:04
PROVIDERS: ATTEND Internal Medicine Gastroenterology
DX: Z12.11 Encounter for screening for malignant neoplasm of colon (principal); Z86.010 Personal history of colon polyps; D12.6 Benign neoplasm of colon, unspecified; K64.0 First degree hemorrhoids; K22.89 Other specified disease of esophagus; K44.9 Diaphragmatic hernia without obstruction or gangrene; R12 Heartburn; F17.200 Nicotine dependence, unspecified, uncomplicated; I10 Essential (primary) hypertension; E03.9 Hypothyroidism, unspecified; Z79.02 Long term (current) use of antithrombotics/antiplatelets; Z79.1 Long term (current) use of non-steroidal anti-inflammatories (NSAID); Z79.83 Long term (current) use of bisphosphonates; Z79.890 Hormone replacement therapy; Z79.899 Other long term (current) drug therapy; Z88.5 Allergy status to narcotic agent

== ENCOUNTER → 2024-02-24 | Outpatient (REF) | payer BC ==
[~2024-02-24] MED LIST changes: +GABA-1635 PO; -GABA800T4 PO
== END ==
LOC: M SFHCDERM 07:45
PROVIDERS: ATTEND Physician Assistant
DX: L82.1 Other seborrheic keratosis (principal); L57.8 Other skin changes due to chronic exposure to nonionizing radiation

== ENCOUNTER → 2024-02-25 | Outpatient (CLI) | payer BC | LOC: M CARPUL 15:30 | PROVIDERS: ATTEND Physician Assistant Medical | DX: R07.9 Chest pain, unspecified (principal) ==

== ENCOUNTER → 2024-04-14 | Outpatient (REF) | LOC: M EMP 10:58 | PROVIDERS: ATTEND Family Medicine | DX: Z01.89 Encounter for other specified special examinations (principal) ==

== ENCOUNTER → 2024-04-25 | Outpatient (CLI) | payer BC ==
[2024-04-25 09:07] LABS: BLOOD UREA NITROGEN 14 MG/DL (9-23); CREATININE FOR GFR 0.49 MG/DL (0.55-1.30); GLOMERULAR FILTRATION RATE > 60.0 (>45)
== END ==
LOC: M LAB 07:01
PROVIDERS: ATTEND Orthopaedic Surgery
DX: M51.16 Intervertebral disc disorders with radiculopathy, lumbar region (principal); Z98.1 Arthrodesis status

== ENCOUNTER → 2024-08-04 | Outpatient (CLI) | payer BC | LOC: M WHC 12:27 | PROVIDERS: ATTEND Internal Medicine | DX: Z12.31 Encounter for screening mammogram for malignant neoplasm of breast (principal); Z13.820 Encounter for screening for osteoporosis; Z98.1 Arthrodesis status; M85.89 Other specified disorders of bone density and structure, multiple sites; R92.313 Mammographic fatty tissue density, bilateral breasts ==

== ENCOUNTER → 2024-08-08 | Outpatient (REF) ==
[2024-08-08 17:11] LABS: APPEARANCE, URINE CLEAR (CLEAR); BACTERIA, URINE AUTO NEGATIVE (NEGATIVE); BILIRUBIN, URINE AUTO NEGATIVE (NEGATIVE); BLOOD, URINE BLOOD NEGATIVE (NEGATIVE); COLOR, URINE YELLOW (YELLOW); GLUCOSE, URINE (UA) AUTO NEGATIVE (NEGATIVE); KETONE, URINE AUTO NEGATIVE (NEGATIVE); LEUKOCYTE ESTERASE, URINE AUTO NEGATIVE (NEGATIVE); MUCUS, URINE SMALL (NEGATIVE); NITRITE, URINE AUTO NEGATIVE (NEGATIVE); PROTEIN, URINE AUTO NEGATIVE (NEGATIVE); RBC, URINE AUTO 2 /HPF (0-3); SQUAMOUS EPITHELIAL CELL UR AU 2 /HPF (0-6); UROBILINOGEN, URINE AUTO 0.2 mg/dL (0.0-2.0); WBC, URINE AUTO 1 /HPF (0-3)
[2024-08-08 17:19] LABS: HEMATOCRIT 32.7 % (36.0-47.0); HEMOGLOBIN 11.7 g/dl (12.0-15.5); MEAN CORPUSCULAR HEMOGLOBIN 34.2 pg (27.0-33.0); MEAN CORPUSCULAR HGB CONC 35.8 g/dl (32.0-36.5); MEAN CORPUSCULAR VOLUME 95.6 fl (80.0-96.0); PLATELET COUNT, AUTOMATED 270 10^3/uL (150-450); RED BLOOD COUNT 3.42 10^6/uL (4.00-5.40); WHITE BLOOD COUNT 5.3 10^3/uL (4.0-10.0)
[2024-08-08 17:37] LABS: BLOOD UREA NITROGEN 19 MG/DL (9-23); CALCIUM LEVEL 9.7 MG/DL (8.3-10.6); CARBON DIOXIDE LEVEL 30 MMOL/L (20-31); CHLORIDE LEVEL 97 MMOL/L (98-107); CHOLESTEROL LEVEL 215 MG/DL (<200); CREATININE FOR GFR 0.63 MG/DL (0.55-1.30); GLOMERULAR FILTRATION RATE > 90.0 (>45); GLUCOSE, FASTING 88 MG/DL (74-106); HDL CHOLESTEROL 61.3 MG/DL (>40); LDL CHOLESTEROL 115.1 MG/DL (<100); NON-HDL-C 153.7 MG/DL; POTASSIUM SERUM 3.9 MMOL/L (3.5-5.1); SODIUM LEVEL 136 MMOL/L (136-145); TRIGLYCERIDES LEVEL 193 MG/DL (<150)
[2024-08-09 13:53] LABS: TOTAL 25(OH) VITAMIN D 30.9 NG/ML (20.0-100.0)
== END ==
LOC: M LAB 16:04
PROVIDERS: ATTEND Internal Medicine
DX: M85.80 Other specified disorders of bone density and structure, unspecified site (principal)

== ENCOUNTER → 2024-08-08 | Outpatient (CLI) | payer BC | LOC: M LAB 16:02 | PROVIDERS: ATTEND Orthopaedic Surgery Orthopaedic Surgery of the Spine | DX: M54.50 Low back pain, unspecified (principal) ==

== ENCOUNTER → 2024-08-24 | Outpatient (REF) | payer BC ==
[2024-08-24 14:22] LABS: INR 0.84; PARTIAL THROMBOPLASTIN TIME 22.3 SECONDS (24.8-34.2); PROTHROMBIN TIME 11.8 SECONDS (12.5-14.5)
== END ==
LOC: M LAB REF 13:58
PROVIDERS: ATTEND Internal Medicine
DX: Z01.818 Encounter for other preprocedural examination (principal)

== ENCOUNTER → 2024-11-18 | Outpatient (CLI) | payer BC | LOC: M RAD 08:03 | PROVIDERS: ATTEND Nurse Practitioner Adult Health | DX: Z12.2 Encounter for screening for malignant neoplasm of respiratory organs (principal); F17.218 Nicotine dependence, cigarettes, with other nicotine-induced disorders; R91.8 Other nonspecific abnormal finding of lung field ==

== ENCOUNTER → 2025-02-28 | Outpatient (CLI) | payer BC ==
[2025-02-28 07:31] LABS: ALT/SGPT 25 U/L (7.0-40); AST/SGOT 24 U/L (<34); CALCIUM LEVEL 9.3 MG/DL (8.3-10.6); CARBON DIOXIDE LEVEL 26 MMOL/L (20-31); CHLORIDE LEVEL 102 MMOL/L (98-107); CPK CREATINE PHOSPHOKINASE 216 U/L (34-145); CREATININE FOR GFR 0.55 MG/DL (0.55-1.30); GLOMERULAR FILTRATION RATE > 90.0 (>45); MAGNESIUM LEVEL 1.9 MG/DL (1.8-2.4); POTASSIUM SERUM 3.9 MMOL/L (3.5-5.1); SODIUM LEVEL 135 MMOL/L (136-145)
== END ==
LOC: M LAB 06:10
PROVIDERS: ATTEND Internal Medicine
DX: Z13.31 Encounter for screening for depression (principal); I10 Essential (primary) hypertension; E78.00 Pure hypercholesterolemia, unspecified

== ENCOUNTER → 2025-04-03 | Outpatient (CLI) | payer BC ==
[2025-04-03 16:54] LABS: CALCIUM LEVEL 9.8 MG/DL (8.3-10.6); CARBON DIOXIDE LEVEL 29 MMOL/L (20-31); CHLORIDE LEVEL 100 MMOL/L (98-107); CPK CREATINE PHOSPHOKINASE 280 U/L (34-145); CREATININE FOR GFR 0.64 MG/DL (0.55-1.30); GLOMERULAR FILTRATION RATE > 90.0 (>45); MAGNESIUM LEVEL 1.8 MG/DL (1.8-2.4); POTASSIUM SERUM 4.1 MMOL/L (3.5-5.1); SODIUM LEVEL 137 MMOL/L (136-145)
== END ==
LOC: M WUC 12:44
PROVIDERS: ATTEND Internal Medicine
DX: E03.9 Hypothyroidism, unspecified (principal); I10 Essential (primary) hypertension; E83.42 Hypomagnesemia; E78.00 Pure hypercholesterolemia, unspecified